=== PATIENT | female | born 1985 | race Caucasian/White ===

== ENCOUNTER 2018-04-14 11:29 | Emergency (ER) | payer BC ==
[2018-04-14] MEDS ORDERED: Betamethasone Soluspan 30 mg/5mL Inj Susp IM ONE (12:28)
[2018-04-14 12:41] VITALS: BMI 27.1
[2018-04-14 21:13] VITALS: BP 113/71; PULSE 78; O2SAT 98
--- NOTE | 2018-04-15 09:05 | OBDCSUM ---
Datetime: 04/14/2018 13:16 Discharge Diagnosis, Provider: False Labor - Undelivered
--- NOTE | 2018-04-15 09:05 | OBHP ---
Datetime: 04/14/2018 12:31 IP Adm Impression: , intrauterine ; No Active Labor; Intact Membranes IP Chief Complaint Other: for betamethason IM x1 dose IP Admit Plan: Observation/Evaluation Admit Comment, IP Provider: 32 y/o female at 36+3 wks GA IUP based on both LMP and U/S sent to [place] by Dr. Cook for a betamethasone IM injection. Patient denies VFL and VB. Endorses good mo vement. Denies fevers, chills, chest pain, dyspnea, abdominal pain, nausea, vomiting, diarrhea, dysur ia, frequency and urgency. OB: Dr. Cook Pmhx: Denies HomeRx: vitamins and ferrous sulfate daily SurgHx: denies SocialHx: denies toxic habits- quit smoking when she found out she was Famhx: non-contributory Allergies: NKDA Labs: HIV: negative; HbsAg: negative; GBS: unknown; Rubella: immune; RPR: Non-reactive; Flu vaccin e: 12/10/17 ROS: negative except per HPI Physical Exam: Gen: no acute distress, sitting comfortably in bed Heart: S1 S2 present, RRR Lungs: normal respiratory effort, clear to auscultation bilaterally, no wheezes, crackles or rhonc hi Abd: Gravid, soft, non-tender to palpation, normal BS Extremities: no swelling/erythema/tenderness Assessment and Plan: 32 y/o female at 36+3 wks GA IUP based on both LMP and U/S sent to [place] by Dr. Cook for a be tamethasone IM injection -[place] and NST FHR monitoring - Betamethasone 12mg IM x1 dose; Patient to return tomorrow for 2nd dose Case discussed w/ attending, Dr. Mely Monroe, PGY1 OB Hospitalist on-call. With PGY1, I saw and examined this pt. Agree with note. Also, I contac dami Dr Flavia Cook. Her questions answered. discharge home...MAHNDO Pelvic Type - PN: Adequate Extremities - PN: Normal Abdomen - PN: Normal Back - PN: Normal Breast - PN: Not Done Lungs - PN: Normal Heart - PN: Normal Thyroid - PN: Normal Neurologic - PN: Normal HEENT - PN: Normal General - PN: Normal IP Hx Assessment: The History has been Reviewed and is Current EGA AdmitDate IP: 36.3 Vital Signs Provider: Reviewed; Within Normal Limits IP Chief Complaint: Other Genitourinary Exam: Normal DTRs - PN: Normal
== END 2018-04-14 13:30 | disposition home or self-care (01) ==
LOC: H.EROB2 11:29
DX: O26.93 Pregnancy related conditions, unspecified, third trimester (principal); Z3A.36 36 weeks gestation of pregnancy; Z23 Encounter for immunization
CPT/HCPCS: 96372; 99281; J0702